=== PATIENT | female | born 1985 | race Caucasian/White ===

== ENCOUNTER 2017-06-22 17:51 | Emergency (ER) | payer SELFPAY ==
[~2017-06-22] VITALS: Ht 175.3 cm; Wt 94.5 kg
[2017-06-22] MEDS ORDERED: LIDOCAINE HCL 1% 10 ML VIAL INJ ONE (19:00)
[2017-06-22] MEDS ORDERED: PENICILLIN V POTASSIUM 500 MG TABLET PO ONE (19:00)
[2017-06-22 19:56] VITALS: BP 126/91
== END 2017-06-22 20:06 | disposition home or self-care (01) ==
LOC: EMS 17:53
DX: K08.89 Other specified disorders of teeth and supporting structures (principal); R11.0 Nausea
CPT/HCPCS: 64400; 93005; 99284; J3490